=== PATIENT | female | born 1975 | race African-American/Black ===

== ENCOUNTER 2017-03-04 15:39 | Emergency (ER) | payer BC ==
[~2017-03-04] VITALS: Ht 180.3 cm; Wt 120.0 kg
[2017-03-04 15:42] VITALS: BP 216/113; PULSE 124; RESP 20; TEMP 98.1; O2SAT 99
[2017-03-04] MEDS ORDERED: LABETALOL HCL 100 MG/20 ML VIAL IV PUSH ONE (16:30)
[2017-03-04] MEDS ORDERED: KETOROLAC TROMETHAMINE 30 MG/ML (IVP) VIAL IVP ONE (16:30)
[2017-03-04] MEDS ORDERED: METOCLOPRAMIDE HCL 10 MG/2 ML VIAL IVS ONE (16:30)
--- NOTE | 2017-03-04 16:30 | PD ---
HPI Chief Complaint: Dizziness Time Seen by Provider: 15:57 Travel History International Travel<30 days: No Contact w/Intl Traveler<30days: No Traveled to known affect area: No History of Present Illness HPI This is a 41-year-old female with a history of diabetes mellitus, non-Hodgkin's lymphoma who is reportedly in remission, who presents today with complaints of chest pain, nausea, dizziness. The patient reports that her blood pressure is normally normal. She noted today that she wasn't feeling well when they checked her blood pressure, they noted to be extremely elevated. She reports the pain as sharp and stabbing across her chest. There is no vomiting, just the nausea. She does report shortness of breath with the discomfort. When asked about the dizziness, she just states that she feels lightheaded. She also gives history of a significant weight loss over the last month. She she went from a 5X2 and XL. The patient also states she feels dehydrated. She is here for a [employer] event and states that she's been working extremely hard of the last 48 hours and feels as though she's not been sleeping, eating or drinking well. PFSH Past Medical History Cerebrovascular Accident: Yes Diabetes: Yes Respiratory: Yes ?: Not LMP: 3 weeks ago Social History Tobacco Use: No Allergies-Medications (Allergen,Severity, Reaction): Coded Allergies: Contrast Media (Verified Allergy, Intermediate, 03/04/17) Iodine (Verified Allergy, Intermediate, 03/04/17) Morphine (Verified Allergy, Intermediate, 03/04/17) Penicillin (Verified Allergy, Intermediate, itchy rash, 03/04/17) Shellfish (Verified Allergy, Intermediate, respiratory, 03/04/17) Reported Meds & Prescriptions Reported Meds & Active Scripts Active Reglan (Metoclopramide HCl) 5 Mg Tab 5 Mg PO TID Ketorolac (Ketorolac Tromethamine) 10 Mg Tab 10 Mg PO BID PRN Review of Systems Except as stated in HPI: all other systems reviewed are Neg General / Constitutional: No: Fever, Chills Eyes: No: Blurred Vision, Photophobia HENT: Positive: Lightheadedness, No: Headaches Cardiovascular: Positive: Chest Pain or Discomfort Respiratory: Positive: Shortness of Breath, No: Cough Gastrointestinal: Positive: Nausea, No: Vomiting, Abdominal Pain Musculoskeletal: Positive: Pain (bilateral hip pain. Patient states this stems from when she had bone cancer from her non-Hodgkin's lymphoma.), No: Weakness Neurologic: Positive: Dizziness, No: Weakness, Headache Physical Exam Narrative GENERAL: Well-developed well-nourished female in no acute respiratory distress. The patient does report that she feels extremely anxious. SKIN: Focused skin assessment warm/dry. HEAD: Atraumatic. Normocephalic. EYES: No scleral icterus. No injection or drainage. ENT: No nasal bleeding or discharge. Mucous membranes pink and moist. NECK: Trachea midline. No JVD. Supple CARDIOVASCULAR: Tachycardic rate in the low 100s. 110 on my examination. No murmurs appreciated. RESPIRATORY: No accessory muscle use. Clear to auscultation. Breath sounds equal bilaterally. GASTROINTESTINAL: Abdomen soft, non-tender, nondistended. MUSCULOSKELETAL: No obvious deformities. No clubbing. No cyanosis. No edema. NEUROLOGICAL: Awake and alert. No obvious cranial nerve deficits. Motor grossly within normal limits. Normal speech. PSYCHIATRIC: Anxious appearing. Normal insight and judgment. Data Data Last Documented VS Vital Signs Date Time Temp Pulse Resp B/P Pulse Ox O2 Delivery O2 Flow Rate FiO2 03/04/17:17 104 18 142/89 98 Room Air 03/04/17 15:42 98.1 Orders Electrocardiogram (03/04/17 16:11) Ckmb (Isoenzyme) Profile (03/04/17 16:11) Complete Blood Count With Diff (03/04/17 16:11) Comprehensive Metabolic Panel (03/04/17 16:11) Magnesium (Mg) (03/04/17 16:11) Prothrombin Time / Inr (Pt) (03/04/17 16:11) Act Partial Throm Time (Ptt) (03/04/17 16:11) Troponin I (03/04/17 16:11) Chest, Single Ap (03/04/17 16:11) Ecg Monitoring (03/04/17 16:11) Bilateral Bp Monitoring (03/04/17 16:11) Iv Access Insert/Monitor (03/04/17 16:11) Oximetry (03/04/17 16:11) Oxygen Administration (03/04/17 16:11) Ketorolac Inj (Toradol Inj) (03/04/17 16:30) Metoclopramide Inj (Reglan Inj) (03/04/17 16:30) Labetalol Inj (Trandate Inj) (03/04/17 16:30) Sodium Chlor 0.9% 1000 Ml Inj (Ns 1000 M (03/04/17 16:30) CKMB (03/04/17 16:55) CKMB% (03/04/17 16:55) Labs Laboratory Tests Test 03/04/17 16:55 White Blood Count 7.2 TH/MM3 Red Blood Count 4.39 MIL/MM3 Hemoglobin 12.2 GM/DL Hematocrit 37.6 % Mean Corpuscular Volume 85.6 FL Mean Corpuscular Hemoglobin 27.7 PG Mean Corpuscular Hemoglobin 32.4 % Concent Red Cell Distribution Width 14.0 % Platelet Count 283 TH/MM3 Mean Platelet Volume 8.4 FL Neutrophils (%) (Auto) 54.3 % Lymphocytes (%) (Auto) 34.8 % Monocytes (%) (Auto) 8.2 % Eosinophils (%) (Auto) 1.8 % Basophils (%) (Auto) 0.9 % Neutrophils # (Auto) 3.9 TH/MM3 Lymphocytes # (Auto) 2.5 TH/MM3 Monocytes # (Auto) 0.6 TH/MM3 Eosinophils # (Auto) 0.1 TH/MM3 Basophils # (Auto) 0.1 TH/MM3 CBC Comment DIFF FINAL Differential Comment Prothrombin Time 10.6 SEC Prothromb Time International 1.0 RATIO Ratio Activated Partial 26.8 SEC Thromboplast Time Sodium Level 133 MEQ/L Potassium Level 3.8 MEQ/L Chloride Level 99 MEQ/L Carbon Dioxide Level 22.6 MEQ/L Anion Gap 11 MEQ/L Blood Urea Nitrogen 12 MG/DL Creatinine 0.82 MG/DL Estimat Glomerular Filtration 77 ML/MIN Rate Random Glucose 260 MG/DL Calcium Level 8.9 MG/DL Magnesium Level 1.9 MG/DL Total Bilirubin 0.4 MG/DL Aspartate Amino Transf 12 U/L (AST/SGOT) Alanine Aminotransferase 17 U/L (ALT/SGPT) Alkaline Phosphatase 86 U/L Total Creatine Kinase 117 U/L Creatine Kinase MB LESS THAN 0.5 NG/ML Troponin I LESS THAN 0.02 NG/ML Total Protein 8.1 GM/DL Albumin 3.6 GM/DL MDM Medical Decision Making Medical Screen Exam Complete: Yes Emergency Medical Condition: Yes Differential Diagnosis ACS versus pleurisy versus hypertensive urgency Narrative Course Is a 41-year-old female with a history of non-Hodgkin's lymphoma, diabetes noticed, who presents here with complaints of chest pain, dizziness. The patient is noted to have an elevated blood pressure when she came in. She is also very anxious and had tachycardia. The patient's EKG shows no evidence of acute ST elevation or depression. There was sinus tach on the monitor otherwise negative. The patient's cardiac enzymes are within normal limits. Blood she's blood sugar was 200 but she does have a history of diabetes. I offered the patient admission to the hospital for chest pain rule out as well as further testing for her tachycardia however at this point she and her have decided that they will go back home to [place] with her hometown is. I did warn them that this could be cardiac or pulmonary in etiology and we can't be sure without admitting her to the hospital for further testing. They understand this but still wished to go home to [place]. She is requesting a prescription for the oral form of Toradol which she has received. She also has requested the Reglan nausea medicine. I will write this prescription but have recommended that she be seen as soon as she returns back to [place]. They state they understand this will do so as directed. Diagnosis Primary Impression: Chest pain Additional Impressions: Dizziness History of non-Hodgkin's lymphoma Hyperglycemia hypertension, resolved Additional Instructions: Follow up immediately when you return home to [place]. If he experienced recurrent chest pain, nausea, difficulty breathing, please stop at the nearest hospital. Med/Other Pt SpecificInfo: Prescription(s) given Scripts Metoclopramide (Reglan)5 Mg Tab5 Mg PO TID #30 TAB Ref 0 Prov:Jose Cantu MD 03/04/17 Ketorolac 10 Mg Tab10 Mg PO BID PRN (pain) #10 TAB Ref 0 Prov:Jose Cantu MD 03/04/17 Disposition: 01 DISCHARGE HOME Condition: Stable Jose Cantu MD Mar 04, 2017 16:30
[2017-03-04 17:05] LABS: AUTOMATED NEUTROPHIL # 3.9 TH/MM3 (1.8-7.7); BASOPHIL # 0.1 TH/MM3 (0-0.2); BASOPHIL % 0.9 % (0.0-2.0); EOSINOPHIL # 0.1 TH/MM3 (0-0.4); EOSINOPHIL % 1.8 % (0.0-4.0); HEMATOCRIT 37.6 % (35.0-46.0); HEMO FLAGS DIFF FINAL; LYMPH % 34.8 % (9.0-44.0); LYMPHOCYTE # 2.5 TH/MM3 (1.0-4.8); MEAN CELL VOLUME 85.6 FL (80.0-100.0); MEAN CORPUSCULAR HEMOGLOBIN 27.7 PG (27.0-34.0); MEAN CORPUSCULAR HGB CONC 32.4 % (32.0-36.0); MONO % 8.2 % (0.0-8.0); NEUT % 54.3 % (16.0-70.0); PLATELET COUNT 283 TH/MM3 (150-450); RED BLOOD COUNT 4.39 MIL/MM3 (4.00-5.30); WHITE BLOOD COUNT 7.2 TH/MM3 (4.0-11.0)
--- NOTE | 2017-03-04 17:11 | RADRPT ---
EXAM DATE/TIME: 03/04/2017 16:17 [facility] COMPARISON: No previous studies available for comparison. INDICATIONS : Chest Pain MEDICAL HISTORY : Lymphoma. SURGICAL HISTORY : None. ENCOUNTER: Initial ACUITY: 1 day PAIN SCORE: 7/10 LOCATION: Bilateral chest FINDINGS: A single view of the chest demonstrates the lungs to be symmetrically aerated without evidence of mas s, infiltrate or effusion. The cardiomediastinal contours are unremarkable. Osseous structures are intact. CONCLUSION: No acute disease. Michael Barbour MD on March 04, 2017 at 17:09 Board Certified Radiologist. This report was verified electronically.
[2017-03-04 17:14] LABS: APTT (PATIENT) 26.8 SEC (24.3-30.1); PROTHROMBIN TIME - PATIENT 10.6 SEC (9.8-11.6)
[2017-03-04] MEDS: SODIUM CHLOR 0.9% 1000 ML INJ 1,000 ML IV SCH ×2 (17:14→19:13)
[2017-03-04 17:17] VITALS: BP 142/89; PULSE 104; RESP 18; O2SAT 98
[2017-03-04 17:26] LABS: ALT (GPT) 17 U/L (10-53); ANION GAP 11 MEQ/L (5-15); AST (GOT) 12 U/L (15-37); BICARBONATE 22.6 MEQ/L (21.0-32.0); BLOOD UREA NITROGEN 12 MG/DL (7-18); CHLORIDE 99 MEQ/L (98-107); GLOMERULAR FILTRATION RATE 77 ML/MIN (>89); MAGNESIUM 1.9 MG/DL (1.5-2.5); POTASSIUM 3.8 MEQ/L (3.5-5.1); SODIUM (NA) 133 MEQ/L (136-145)
[2017-03-04 17:30] LABS: ALKALINE PHOSPHATASE 86 U/L (45-117); CREATINE KINASE 117 U/L (26-192); TOTAL BILIRUBIN ADULT 0.4 MG/DL (0.2-1.0)
[2017-03-04 17:42] LABS: CKMB LESS THAN 0.5 NG/ML (0.5-3.6)
[2017-03-04] MEDS ORDERED: KETO10 PO (18:45)
[2017-03-04] MEDS ORDERED: REGL5TAB PO (18:45)
--- NOTE | 2017-03-05 15:32 | EKG ---
Date Performed: 03/04/2017 Time Performed: 16:34:35 PTAGE: 41 years EKG: SINUS TACHYCARDIA ABNORMAL RHYTHM ECG NO PREVIOUS TRACING DOCTOR: Elroy Singer Interpretating Date/Time 03/05/2017 15:30:26
== END 2017-03-04 19:15 | disposition home or self-care (01) ==
LOC: NEPE 15:39
DX: R07.9 Chest pain, unspecified (principal); R42 Dizziness and giddiness; R00.0 Tachycardia, unspecified; R06.02 Shortness of breath; R03.0 Elevated blood-pressure reading, without diagnosis of hypertension; E11.65 Type 2 diabetes mellitus with hyperglycemia; Z86.73 Personal history of transient ischemic attack (TIA), and cerebral infarction without residual deficits; Z85.72 Personal history of non-Hodgkin lymphomas
CPT/HCPCS: 71010; 80053; 82550; 82552; 83735; 84484; 85025; 85610; 85730; 93005; 96374; 96375; 99285; J1885; J2765; J7030